=== PATIENT | female | born 1935 | race Caucasian/White ===

== ENCOUNTER 2016-04-13 11:02 | Emergency (ER) | payer OTHER ==
--- NOTE | 2016-04-13 11:45 | ED CLINICAL REPORT ---
Clinical Report - Physicians/Mid Levels [facility] [address] [place] [address] 04/13/2016 11:03 Patient: LANG CHEN Time Seen: 11:32 Apr 13 2016. Arrived- By private vehicle. Historian- patient. CPT: ER phys charges level 3 (#[id number]). HISTORY OF PRESENT ILLNESS Chief Complaint: INJURY TO HEAD. Location of injuries- head. The injury occurred just prior to arrival. Occurred at home. ( Hit head). Fell while walking and landed on a hard surface; lost balance. The patient sustained a blow to the head. No neck pain or loss of consciousness. Not dazed. REVIEW OF SYSTEMS No numbness, dizziness, weakness, headache or nausea. No abdominal pain or vomiting. She has no pain on weight bearing. No changes in gait or medical status recently. NO weakness, N/V/D F/S/C. Cane Burner syas she has been baseline and just lost her balance today. PAST HISTORY Chronic unsteady gait. Sprain. Contusion. Fall. Epistaxis. Depression. Urinary Incontinence. Hypertension. Hypercholesterolemia. CVA - Cerebrovascular Accident. Back Pain. Arthritis. Dementia. --11:28 Peggy Soto R.N. ADDITIONAL SURGERIES: Adenoidectomy. Hip Surgery. Tonsillectomy. Medications: Vitamin D3 Oral 50,000 units. Vitamin B-12 Sublingual once a week. Memantine HCl Oral (Tablet 10 mg). Melatonin Oral (Tablet 5 mg). Lantus Subcutaneous (Solution 100 unit/mL) 12 units, at bedtime. Donepezil HCl Oral (Tablet 5 mg). Ecotrin Oral 81 mg. Ferrous Sulfate Oral 325 mg, 2x a day. MetFORMIN HCl Oral 500 mg, 2x a day. Plavix Oral 75 mg, daily. RisperiDONE Oral 3 mg, 2x a day. Venlafaxine HCl Oral 75 mg, 2x a day. Allergies: Demerol. SOCIAL HISTORY Never smoker. No alcohol use or drug use. ADDITIONAL NOTES The nursing notes have been reviewed. PHYSICAL EXAM Vital Signs: 04/13/2016 11:19 BP: 121/50. HR: 95. RR: 18. O2 saturation: 100%. Temp: 98.2 F. Appearance: Alert. Head: Vertex: mild tenderness and small abrasion of the posterior aspect of the vertex. No ecchymosis or deformity. Eyes: Pupils equal, round and reactive to light. ENT: No dental injury. Pharynx normal. Neck: Painless ROM. Non-tender. CVS: Heart sounds normal. Respiratory: Breath sounds normal. Chest nontender. Abdomen: Nontender. Back: No tenderness. Skin: Skin warm. Extremities: Extremities atraumatic. Neuro: No motor deficit. No sensory deficit. PROGRESS AND PROCEDURES Course of Care: Cane Burner indicates that she has been healthy with no complaints and that she fell due to her unsteady gait that is chronic. Does not feel patient is ill in any way. Pt glazed a cabinet with head and slid to floor so mechanism is mild for trauma. NO CT of head indicated, no need for further w/u. Patient/family counseled. Disposition: Discharged. Condition: stable. CLINICAL IMPRESSION Single superficial abrasion to the scalp. Single contusion with abrasion to the scalp. Fall on same level by tripping. INSTRUCTIONS Protect wound and keep wound area clean. Change dressing twice daily. Keep wounds dry. You may wash wounds briefly, then dry. Apply neosporin twice daily. Warnings: HEAD INJURY PRECAUTIONS: An observer must check on the patient every 4 hours for the next 24 hours to confirm that the patient responds as expected, is not confused, has no new weakness or numbness, and has no other problems. Tetanus shot not given. Your Current Medications: CONTINUE TAKING THE FOLLOWING MEDICATIONS: Donepezil HCl Oral : Tablet 5 mg. Ecotrin Oral : 81 mg. Ferrous Sulfate Oral : 325 mg 2x a day. Lantus Subcutaneous : Solution 100 unit/mL, 12 units at bedtime. Melatonin Oral : Tablet 5 mg. Memantine HCl Oral : Tablet 10 mg. MetFORMIN HCl Oral : 500 mg 2x a day. Plavix Oral : 75 mg daily. RisperiDONE Oral : 3 mg 2x a day. Venlafaxine HCl Oral : 75 mg 2x a day. Vitamin B-12 Sublingual : once a week. Vitamin D3 Oral : 50,000 units. OTC Medications: Acetaminophen (available over the counter): take according to label instructions. Follow-up: Follow up with your doctor as needed. Understanding of the discharge instructions verbalized by patient. Discharge instructions reviewed with and understanding was verbalized by caregiver. (Electronically signed by Andrews Coburn MD 04/14/2016 13:03)
--- NOTE | 2016-04-13 11:45 | ED NURSING NOTES ---
Clinical Report - Nurses [facility] [address] [place] [address] 04/13/2016 11:03 Patient: LANG CHEN TRIAGE Triage time 11:19 Apr 13 2016 late entry -. Acuity: LEVEL 2. Chief Complaint: FALL. Alert. [place] COMA SCORE: [place] Coma Scale: 14- eyes open spontaneously (4); best verbal response- disoriented (4); best motor response- obeys commands (6). (pt has Dementia). --11:28 Peggy Soto R.N. 11:19 04/13/16. BP: 121/50. HR: 95. RR: 18. O2 saturation: 100%. Temp: 98.2 F. Pain level now 0/10. --11:28 Peggy Soto R.N. Weight: 63.5 kg estimated. Height/Length: 64 inches Estimated. BMI: 24. --11:19 Peggy Soto R.N. Medications Ferrous Sulfate Oral 325 mg, 2x a day. MetFORMIN HCl Oral 500 mg, 2x a day. Plavix Oral 75 mg, daily. RisperiDONE Oral 3 mg, 2x a day. Venlafaxine HCl Oral 75 mg, 2x a day. --11:22 Peggy Soto R.N. Ecotrin Oral 81 mg. --11:25 Peggy Soto R.N. Donepezil HCl Oral (Tablet 5 mg). --11:25 Peggy Soto R.N. Lantus Subcutaneous (Solution 100 unit/mL) 12 units, at bedtime. --11:25 Peggy Soto R.N. Melatonin Oral (Tablet 5 mg). --11:26 Peggy Soto R.N. Memantine HCl Oral (Tablet 10 mg). --11:26 Peggy Soto R.N. Vitamin B-12 Sublingual once a week. --11:27 Peggy Soto R.N. Vitamin D3 Oral 50,000 units. --11:27 Peggy Soto R.N. Medication/allergy information source: the patient's guardian / dairy cattle farm manager. --: Peggy Soto R.N. Allergies Demerol. --: Peggy Soto R.N. The following entry was struck by Peggy Soto R.N., 11:28 (04/13/16) Reason - other. <<STRICKEN ENTRY-- None. --11:22 Peggy Soto R.N. --END STRIKE>>. History Arrived by private vehicle. Historian: dairy cattle farm manager and family. ( Pt brought in by Caregiver, lives in an Adult Family Home. Pt's gait is fair per Caregiver and she miss stepped and fell up against the dresser and hit her occipital area. Redness and a wound noted. Bleeding controlled. Pt is on Plavix. Pt has Dementia.). Location of injuries: occiput. This occurred just prior to arrival. No loss of consciousness. Treatment HAND STRAIGHTENER: None. Trauma activation: Pre-hospital notification of patient arrival was not received. PAST MEDICAL HX: Diabetes mellitus. SOCIAL HX: Never smoker. No alcohol use or drug use. No infectious disease exposure. NUTRITIONAL RISK ASSESSMENT: The nutritional risk assessment revealed no deficiencies. FALL RISK ASSESSMENT: Fall risk assessment completed. Risk factors identified include patient medications and age greater than 65 years. FUNCTIONAL ASSESSMENT: Functional assessment performed: requires assistance with the activities of daily living. --: Peggy Soto R.N. PROBLEMS: Sprain. Contusion. Fall. Epistaxis. Depression. Urinary Incontinence. Hypertension. Hypercholesterolemia. CVA - Cerebrovascular Accident. Back Pain. Arthritis. Dementia. --: Peggy Soto R.N. ADDITIONAL SURGERIES: Adenoidectomy. Hip Surgery. Tonsillectomy. --: Peggy Soto R.N. Interventions ID band on patient. To room. --: Peggy Soto R.N. PHYSICAL ASSESSMENT To room via wheelchair. GENERAL / NEURO / PSYCH: Appears in no acute distress. HEENT: Pupils equal, round and reactive to light. RESPIRATORY: Respirations not labored. CVS: Capillary refill less than 2 seconds. EXTREMITIES: Neuro-vascular status intact to the extremity. ( walked from the w/c to the [facility] with stand by assistyance). SKIN: Skin is warm and dry. ( abrasion noted to occipital area. No bleeding. Bacitracin applied.). --11:41 Peggy Soto R.N. GENERAL / NEURO / PSYCH: ( pt has a history of Dementia). --11:41 Peggy Soto R.N. NURSING PROGRESS NOTES ( Seen and evaluated by Dr. Coburn. Pt assisted back to the w/c by staff. Caregiver taking pt home.). --11:42 Peggy Soto R.N. DISPOSITION / DISCHARGE Condition at departure: unchanged and stable. Discharge instructions provided and reviewed with the caregiver. Written instructions provided in Frisian. Caregiver verbalized understanding. No medication instructions or treatment instructions. The patient was discharged by the physician. She was discharged home. She left the Emergency Department in a wheelchair and via private vehicle. ( caregiver). --11:42 Peggy Soto R.N. Departure time: 11:45 Apr 13 2016. --12:08 Peggy Soto R.N. Locked/Released at 04/13/2016 12:09 by Peggy Soto R.N.
--- NOTE | 2016-04-13 11:45 | ED CLINICAL REPORT ---
Clinical Report - Physicians/Mid Levels [facility] [address] [place] [address] 04/13/2016 11:03 Patient: LANG CHEN Time Seen: 11:32 Apr 13 2016. Arrived- By private vehicle. Historian- patient. CPT: ER phys charges level 3 (#[id number]). HISTORY OF PRESENT ILLNESS Chief Complaint: INJURY TO HEAD. Location of injuries- head. The injury occurred just prior to arrival. Occurred at home. ( Hit head). Fell while walking and landed on a hard surface; lost balance. The patient sustained a blow to the head. No neck pain or loss of consciousness. Not dazed. REVIEW OF SYSTEMS No numbness, dizziness, weakness, headache or nausea. No abdominal pain or vomiting. She has no pain on weight bearing. No changes in gait or medical status recently. NO weakness, N/V/D F/S/C. 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 PAST HISTORY Chronic unsteady gait. Sprain. Contusion. Fall. Epistaxis. Depression. Urinary Incontinence. Hypertension. Hypercholesterolemia. CVA - Cerebrovascular Accident. Back Pain. Arthritis. Dementia. --11:28 Peggy Soto R.N. ADDITIONAL SURGERIES: Adenoidectomy. Hip Surgery. Tonsillectomy. Medications: Vitamin D3 Oral 50,000 units. Vitamin B-12 Sublingual once a week. Memantine HCl Oral (Tablet 10 mg). Melatonin Oral (Tablet 5 mg). Lantus Subcutaneous (Solution 100 unit/mL) 12 units, at bedtime. Donepezil HCl Oral (Tablet 5 mg). Ecotrin Oral 81 mg. Ferrous Sulfate Oral 325 mg, 2x a day. MetFORMIN HCl Oral 500 mg, 2x a day. Plavix Oral 75 mg, daily. RisperiDONE Oral 3 mg, 2x a day. Venlafaxine HCl Oral 75 mg, 2x a day. Allergies: Demerol. SOCIAL HISTORY Never smoker. No alcohol use or drug use. ADDITIONAL NOTES The nursing notes have been reviewed. PHYSICAL EXAM Vital Signs: 04/13/2016 11:19 BP: 121/50. HR: 95. RR: 18. O2 saturation: 100%. Temp: 98.2 F. Appearance: Alert. Head: Vertex: mild tenderness and small abrasion of the posterior aspect of the vertex. No ecchymosis or deformity. Eyes: Pupils equal, round and reactive to light. ENT: No dental injury. Pharynx normal. Neck: Painless ROM. Non-tender. CVS: Heart sounds normal. Respiratory: Breath sounds normal. Chest nontender. Abdomen: Nontender. Back: No tenderness. Skin: Skin warm. Extremities: Extremities atraumatic. Neuro: No motor deficit. No sensory deficit. PROGRESS AND PROCEDURES Course of Care: Field Sales Specialist indicates that she has been healthy with no complaints and that she fell due to her unsteady gait that is chronic. Does not feel patient is ill in any way. Pt glazed a cabinet with head and slid to floor so mechanism is mild for trauma. NO CT of head indicated, no need for further w/u. Patient/family counseled. Disposition: Discharged. Condition: stable. CLINICAL IMPRESSION Single superficial abrasion to the scalp. Single contusion with abrasion to the scalp. Fall on same level by tripping. INSTRUCTIONS Protect wound and keep wound area clean. Change dressing twice daily. Keep wounds dry. You may wash wounds briefly, then dry. Apply neosporin twice daily. Warnings: HEAD INJURY PRECAUTIONS: An observer must check on the patient every 4 hours for the next 24 hours to confirm that the patient responds as expected, is not confused, has no new weakness or numbness, and has no other problems. Tetanus shot not given. Your Current Medications: CONTINUE TAKING THE FOLLOWING MEDICATIONS: Donepezil HCl Oral : Tablet 5 mg. Ecotrin Oral : 81 mg. Ferrous Sulfate Oral : 325 mg 2x a day. Lantus Subcutaneous : Solution 100 unit/mL, 12 units at bedtime. Melatonin Oral : Tablet 5 mg. Memantine HCl Oral : Tablet 10 mg. MetFORMIN HCl Oral : 500 mg 2x a day. Plavix Oral : 75 mg daily. RisperiDONE Oral : 3 mg 2x a day. Venlafaxine HCl Oral : 75 mg 2x a day. Vitamin B-12 Sublingual : once a week. Vitamin D3 Oral : 50,000 units. OTC Medications: Acetaminophen (available over the counter): take according to label instructions. Follow-up: Follow up with your doctor as needed. Understanding of the discharge instructions verbalized by patient. Discharge instructions reviewed with and understanding was verbalized by caregiver. (Electronically signed by Andrews Coburn MD 04/14/2016 13:03)
--- NOTE | 2016-04-13 11:45 | ED NURSING NOTES ---
Clinical Report - Nurses [facility] [address] [place] [address] 04/13/2016 11:03 Patient: LANG CHEN TRIAGE Triage time 11:19 Apr 13 2016 late entry -. Acuity: LEVEL 2. Chief Complaint: FALL. Alert. [place] COMA SCORE: [place] Coma Scale: 14- eyes open spontaneously (4); best verbal response- disoriented (4); best motor response- obeys commands (6). (pt has Dementia). --11:28 Peggy Soto R.N. 11:19 04/13/16. BP: 121/50. HR: 95. RR: 18. O2 saturation: 100%. Temp: 98.2 F. Pain level now 0/10. --11:28 Peggy Soto R.N. Weight: 63.5 kg estimated. Height/Length: 64 inches Estimated. BMI: 24. --11:19 Peggy Soto R.N. Medications Ferrous Sulfate Oral 325 mg, 2x a day. MetFORMIN HCl Oral 500 mg, 2x a day. Plavix Oral 75 mg, daily. RisperiDONE Oral 3 mg, 2x a day. Venlafaxine HCl Oral 75 mg, 2x a day. --11:22 Peggy Soto R.N. Ecotrin Oral 81 mg. --11:25 Peggy Soto R.N. Donepezil HCl Oral (Tablet 5 mg). --11:25 Peggy Soto R.N. Lantus Subcutaneous (Solution 100 unit/mL) 12 units, at bedtime. --11:25 Peggy Soto R.N. Melatonin Oral (Tablet 5 mg). --11:26 Peggy Soto R.N. Memantine HCl Oral (Tablet 10 mg). --11:26 Peggy Soto R.N. Vitamin B-12 Sublingual once a week. --11:27 Peggy Soto R.N. Vitamin D3 Oral 50,000 units. --11:27 Peggy Soto R.N. Medication/allergy information source: the patient's guardian / yarn bleaching machine operator. --: Peggy Soto R.N. Allergies Demerol. --: Peggy Soto R.N. The following entry was struck by Peggy Soto R.N., 11:28 (04/13/16) Reason - other. <<STRICKEN ENTRY-- None. --11:22 Peggy Soto R.N. --END STRIKE>>. History Arrived by private vehicle. Historian: yarn bleaching machine operator and family. ( Pt brought in by Caregiver, lives in an Adult Family Home. Pt's gait is fair per Caregiver and she miss stepped and fell up against the dresser and hit her occipital area. Redness and a wound noted. Bleeding controlled. Pt is on Plavix. Pt has Dementia.). Location of injuries: occiput. This occurred just prior to arrival. No loss of consciousness. Treatment TRADING ASSISTANT: None. Trauma activation: Pre-hospital notification of patient arrival was not received. PAST MEDICAL HX: Diabetes mellitus. SOCIAL HX: Never smoker. No alcohol use or drug use. No infectious disease exposure. NUTRITIONAL RISK ASSESSMENT: The nutritional risk assessment revealed no deficiencies. FALL RISK ASSESSMENT: Fall risk assessment completed. Risk factors identified include patient medications and age greater than 65 years. FUNCTIONAL ASSESSMENT: Functional assessment performed: requires assistance with the activities of daily living. --: Peggy Soto R.N. PROBLEMS: Sprain. Contusion. Fall. Epistaxis. Depression. Urinary Incontinence. Hypertension. Hypercholesterolemia. CVA - Cerebrovascular Accident. Back Pain. Arthritis. Dementia. --: Peggy Soto R.N. ADDITIONAL SURGERIES: Adenoidectomy. Hip Surgery. Tonsillectomy. --: Peggy Soto R.N. Interventions ID band on patient. To room. --: Peggy Soto R.N. PHYSICAL ASSESSMENT To room via wheelchair. GENERAL / NEURO / PSYCH: Appears in no acute distress. HEENT: Pupils equal, round and reactive to light. RESPIRATORY: Respirations not labored. CVS: Capillary refill less than 2 seconds. EXTREMITIES: Neuro-vascular status intact to the extremity. ( walked from the w/c to the [facility] with stand by assistyance). SKIN: Skin is warm and dry. ( abrasion noted to occipital area. No bleeding. Bacitracin applied.). --11:41 Peggy Soto R.N. GENERAL / NEURO / PSYCH: ( pt has a history of Dementia). --11:41 Peggy Soto R.N. NURSING PROGRESS NOTES ( Seen and evaluated by Dr. Coburn. Pt assisted back to the w/c by staff. Caregiver taking pt home.). --11:42 Peggy Soto R.N. DISPOSITION / DISCHARGE Condition at departure: unchanged and stable. Discharge instructions provided and reviewed with the caregiver. Written instructions provided in Nepali. Caregiver verbalized understanding. No medication instructions or treatment instructions. The patient was discharged by the physician. She was discharged home. She left the Emergency Department in a wheelchair and via private vehicle. ( caregiver). --11:42 Peggy Soto R.N. Departure time: 11:45 Apr 13 2016. --12:08 Peggy Soto R.N. Locked/Released at 04/13/2016 12:09 by Peggy Soto R.N.
--- NOTE | 2016-04-14 13:04 | ED MED RECONCILIATION SUMMARY ---
Patient: LANG CHEN Medication Reconciliation Report [facility] VisitID: [id number] [address] [place] [address] 80y, F Registration Date/Time: 04/13/2016 Weight: 63.5 kg Height/Length: 64 in. BMI: 24.0 ALLERGIES: Demerol The patient's Home Medications are listed below: CONTINUE TAKING THE FOLLOWING MEDICATIONS: Donepezil HCl Oral (5 mg) Ecotrin Oral 81 mg Ferrous Sulfate Oral 325 mg, 2x a day Lantus Subcutaneous (100 unit/mL) 12 units, at bedtime Melatonin Oral (5 mg) Memantine HCl Oral (10 mg) MetFORMIN HCl Oral 500 mg, 2x a day Plavix Oral 75 mg, daily RisperiDONE Oral 3 mg, 2x a day Venlafaxine HCl Oral 75 mg, 2x a day Vitamin B-12 Sublingual once a week Vitamin D3 Oral 50,000 units The source(s) of the original Home Medication information: patient's guardian / tax map technician The following Medications were given to the patient in the Emergency Department: None. The following Medications were prescribed to the patient: Acetaminophen (available over the counter): take according to label instructions. -- Andrews Coburn MD
--- NOTE | 2016-04-14 13:04 | ED DISCHARGE INSTRUCTIONS ---
Patient: LANG CHEN General Instructions [facility] VisitID: [id number] [place] [address] 80y, F Registration Date/Time: 04/13/2016 Single superficial abrasion to the scalp. Single contusion with abrasion to the scalp. Fall on same level by tripping. INSTRUCTIONS Protect wound and keep wound area clean. Change dressing twice daily. Keep wounds dry. You may wash wounds briefly, then dry. Apply neosporin twice daily. Warnings: HEAD INJURY PRECAUTIONS: An observer must check on the patient every 4 hours for the next 24 hours to confirm that the patient responds as expected, is not confused, has no new weakness or numbness, and has no other problems. Tetanus shot not given. Your Current Medications: CONTINUE TAKING THE FOLLOWING MEDICATIONS: Donepezil HCl Oral : Tablet 5 mg. Ecotrin Oral : 81 mg. Ferrous Sulfate Oral : 325 mg 2x a day. Lantus Subcutaneous : Solution 100 unit/mL, 12 units at bedtime. Melatonin Oral : Tablet 5 mg. Memantine HCl Oral : Tablet 10 mg. MetFORMIN HCl Oral : 500 mg 2x a day. Plavix Oral : 75 mg daily. RisperiDONE Oral : 3 mg 2x a day. Venlafaxine HCl Oral : 75 mg 2x a day. Vitamin B-12 Sublingual : once a week. Vitamin D3 Oral : 50,000 units. OTC Medications: Acetaminophen (available over the counter): take according to label instructions. Follow-up: Follow up with your doctor as needed. Understanding of the discharge instructions verbalized by patient. Discharge instructions reviewed with and understanding was verbalized by caregiver. ADDITIONAL INFORMATION Mechanical Fall You have had a fall today. It appears that the cause is mechanical. That means that you slipped, tripped or lost your balance. If your fall had been due to fainting or a seizure, further tests would be required. Home Care: Rest today and resume your normal activities when you are feeling back to normal. If you were injured during the fall, follow the advice from your doctor regarding care of your injury. You may use acetaminophen (Tylenol) or ibuprofen (Motrin, Advil) to control pain, unless another pain medicine was prescribed. [NOTE: If you have chronic liver or kidney disease or ever had a stomach ulcer or GI bleeding, talk with your doctor before using these medicines.] Fall Prevention: Was there anything that caused your fall that can be fixed, removed, or replaced? Make your home safe by keeping walkways clear of objects you may trip over. Use non-slip pads under rugs. Do not walk in poorly lit areas. Do not stand on chairs or wobbly ladders. Use caution when reaching overhead or looking upward. This position can cause a loss of balance. Be sure your shoes fit properly, have non-slip bottoms and are in good condition. Be cautious when going up and down curbs, and walking on uneven sidewalks. If your balance is poor, consider using a cane or walker. Stay as active as you can. Balance, flexibility, strength, and endurance all come from exercise. They all play a role in preventing falls. Follow Up with your doctor or as advised by our staff. Get Prompt Medical Attention if any of the following occur: Repeated mechanical falls, or unexplained falls Dizziness, fainting or seizure Severe headache Chest pain or shortness of breath Palpitations (very rapid or very slow or irregular heartbeat) Blood in vomit, stools (black or red color) Weakness of an arm or leg or one side of the face Difficulty with speech or vision Abrasions Abrasions are skin scrapes. Their treatment depends on how large and deep the abrasion is. Home Care: If you were given a bandage, change it once a day. If your bandage sticks to the wound, soak it in warm water until it loosens. Wash the area with soap and water to remove all the cream/ointment. You may do this in a sink, under a tub faucet or shower. Rinse off the soap and pat dry with a clean towel. Reapply cream/ointment according to your doctor's instructions. This will prevent infection and help prevent the bandage from sticking. Cover the wound with a fresh non-stick bandage (Telfa). Repeat steps 1 to 4 daily, or as directed by your doctor. If the bandage becomes wet or dirty, change it as soon as possible. You may use acetaminophen (Tylenol) or ibuprofen (Motrin, Advil) to control pain, unless another pain medicine was prescribed. [ NOTE : If you have chronic liver or kidney disease or ever had a stomach ulcer or GI bleeding, talk with your doctor before using these medicines.] Do not use ibuprofen in children under six months of age. Follow Up with your physician or this facility as directed by our staff. Most skin wounds heal within ten days. However, an infection may occur despite proper treatment. Therefore, look for the early signs of infection listed below. Get Prompt Medical Attention if any of the following occur: Increasing pain in the wound Increasing redness or swelling Pus coming from the wound Fever of 100.4F (38C) or higher, or as directed by your healthcare provider Scalp Contusion [No Wake-Up] A scalp contusion is a bruise with swelling and sometimes bleeding under the skin. The swelling should start to go down within two days. Although there is no sign of a serious injury at this time, symptoms may appear later. These could be a sign of a more serious problem (bruising or bleeding in the brain). Therefore, watch for the warning signs below. Home Care: During the next 24 hours someone must stay with you to check for the signs below. It is not necessary to stay awake or be awakened during the night. If you have swelling of the face or scalp, apply an ice pack (ice cubes in a plastic bag, wrapped in a towel) for 20 minutes. Do this every 1-2 hours until the swelling starts to go down. You may use acetaminophen (Tylenol) or ibuprofen (Motrin, Advil) to control pain, unless another pain medicine was prescribed. [ NOTE : If you have chronic liver or kidney disease or ever had a stomach ulcer or GI bleeding, talk with your doctor before using these medicines.] For the next 24 hours: Do not take alcohol, sedatives or medicines that make you sleepy. Do not drive or operate machinery. Avoid strenuous activities. No lifting or straining. If you have had any symptoms of a concussion today (nausea, vomiting, dizziness, confusion, headache, memory loss or if you were knocked out), do not return to sports or any activity that could result in another head injury until all symptoms are gone and you have been cleared by your doctor. A second head injury before fully recovering from the first one can lead to serious brain injury. Follow Up with your doctor if symptoms are not improving after 24 hours, or as directed. [NOTE: Any X-rays or CT scans taken will be reviewed by a radiologist. You will be notified of any new findings that may affect your care.] Get Prompt Medical Attention if any of the following occur: Repeated vomiting Severe or worsening headache or dizziness Unusual drowsiness, or unable to awaken as usual Confusion or change in behavior or speech, memory loss, blurred vision Convulsion (seizure) Increasing scalp or face swelling Redness, warmth or pus from the swollen area Fluid drainage or bleeding from the nose or ears Fever of 100.4F(38C) or higher, or as directed by your healthcare provider Abrasions Abrasions are skin scrapes. Their treatment depends on how large and deep the abrasion is. Home Care: If you were given a bandage, change it once a day. If your bandage sticks to the wound, soak it in warm water until it loosens. Wash the area with soap and water to remove all the cream/ointment. You may do this in a sink, under a tub faucet or shower. Rinse off the soap and pat dry with a clean towel. Reapply cream/ointment according to your doctor's instructions. This will prevent infection and help prevent the bandage from sticking. Cover the wound with a fresh non-stick bandage (Telfa). Repeat steps 1 to 4 daily, or as directed by your doctor. If the bandage becomes wet or dirty, change it as soon as possible. You may use acetaminophen (Tylenol) or ibuprofen (Motrin, Advil) to control pain, unless another pain medicine was prescribed. [ NOTE : If you have chronic liver or kidney disease or ever had a stomach ulcer or GI bleeding, talk with your doctor before using these medicines.] Do not use ibuprofen in children under six months of age. Follow Up with your physician or this facility as directed by our staff. Most skin wounds heal within ten days. However, an infection may occur despite proper treatment. Therefore, look for the early signs of infection listed below. Get Prompt Medical Attention if any of the following occur: Increasing pain in the wound Increasing redness or swelling Pus coming from the wound Fever of 100.4F (38C) or higher, or as directed by your healthcare provider Head Injury, No Wake-Up (Adult) You have had a head injury. It does not appear serious at this time. Symptoms of a more serious problem (concussion, bruising, or bleeding in the brain) may appear later. Therefore, watch for the WARNING SIGNS listed below. Home Care: Your healthcare provider will tell you whether its okay to drive. If so, you can drive yourself home. For the next day or so, be careful when driving or using heavy machinery until you are sure you have no delayed symptoms. During the next 24 hours someone must stay with you to check for the signs below. It is not necessary to stay awake or be awakened during the night. If you have swelling of the face or scalp, apply an ice pack (ice cubes in a plastic bag, wrapped in a towel) for 20 minutes. Do this every 1-2 hours until the swelling starts to go down. Do not use aspirin or ibuprofen (Motrin, Advil) after a head injury.You may use acetaminophen (Tylenol)to control pain, unless another pain medicine was prescribed. [NOTE: If you have chronic liver or kidney disease or ever had a stomach ulcer or GI bleeding, talk with your doctor before using these medicines.] For the next 24 hours: Do not take alcohol, sedatives or medicines that make you sleepy. Avoid strenuous activities. No lifting or straining. If you have had any symptoms of a concussion today (nausea, vomiting, dizziness, confusion, headache, memory loss or if you were knocked out), do not return to sports or any activity that could result in another head injury until all symptoms are gone and you have been cleared by your doctor. A second head injury before fully recovering from the first one can lead to serious brain injury. Follow Up with your doctor if symptoms are not improving after 24 hours, or as directed. [NOTE: A radiologist will review any X-rays or CT scans that were taken. We will notify you of any new findings that may affect your care.] Get Prompt Medical Attention if any of the followingWARNING SIGNS occur: Repeated vomiting Severe or worsening headache or dizziness Unusual drowsiness, or unable to awaken as usual Confusion or change in behavior or speech, memory loss, blurred vision Convulsion (seizure) Increasing scalp or face swelling Redness, warmth or pus from the swollen area Fluid drainage or bleeding from the nose or ears You have been given the following additional information: Fall, Mechanical Abrasion Scalp Contusion, No Wake Up Abrasion HEAD INJURY, No Wake-Up (Adult) (Electronically signed by Andrews Coburn MD 04/14/2016 13:03)
--- NOTE | 2016-04-14 13:04 | ED MED RECONCILIATION SUMMARY ---
Patient: LANG CHEN Medication Reconciliation Report [facility] VisitID: [id number] [place] [address] 80y, F Registration Date/Time: 04/13/2016 Weight: 63.5 kg Height/Length: 64 in. 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 The following Medications were prescribed to the patient: Acetaminophen (available over the counter): take according to label instructions. -- Andrews Coburn MD
--- NOTE | 2016-04-14 13:04 | ED MAR SUMMARY ---
..... Medication Administration Record [facility] [address] [place], [place] [id number] Patient: LANG CHEN Visit ID: [id number] 80y, F Weight: 63.5 kg Height/Length: 64 in BMI: 24 ALLERGIES: Demerol
--- NOTE | 2016-04-14 13:04 | ED MAR SUMMARY ---
..... Medication Administration Record [facility] [address] [place], [place] [id number] Patient: LANG CHEN Visit ID: [id number] 80y, F Weight: 63.5 kg Height/Length: 64 in BMI: 24 ALLERGIES: Demerol
== END 2016-04-13 11:45 | disposition home or self-care (01) ==
LOC: ED SRH 11:02
DX: S00.01XA Abrasion of scalp, initial encounter (principal); S00.03XA Contusion of scalp, initial encounter; W01.0XXA Fall on same level from slipping, tripping and stumbling without subsequent striking against object, initial encounter; Y93.01 Activity, walking, marching and hiking; Y92.009 Unspecified place in unspecified non-institutional (private) residence as the place of occurrence of the external cause; Y99.9 Unspecified external cause status; F03.90 Unspecified dementia, unspecified severity, without behavioral disturbance, psychotic disturbance, mood disturbance, and anxiety; I10 Essential (primary) hypertension; Z86.73 Personal history of transient ischemic attack (TIA), and cerebral infarction without residual deficits; Z79.84 Long term (current) use of oral hypoglycemic drugs